=== PATIENT | female | born 1980 | race Hispanic/Latino ===

== ENCOUNTER 2019-12-04 00:28 | Emergency (ER) | payer MEDICAID, OTHER ==
[2019-12-04] MEDS ORDERED: KETOROLAC TROMETHAMINE 60 MG/2 ML VIAL ONE (00:59)
[2019-12-04] MEDS ORDERED: ORPHENADRINE CITRATE 30 MG/ML ML ONE (00:59)
[2019-12-04] MEDS ORDERED: DiphenhydrAMINE HCL 50 MG/ML VIAL ONE (02:09)
[2019-12-04] MEDS ORDERED: ONDANSETRON ODT 4 MG TAB ONE (02:10)
== END 2019-12-04 03:35 | disposition home or self-care (01) ==
LOC: EDH 00:28
DX: M62.838 Other muscle spasm (principal); F41.1 Generalized anxiety disorder; Z98.890 Other specified postprocedural states
CPT/HCPCS: 82948; 93005; 96372 ×3; 99284; J1200; J1885; J2360